=== PATIENT | female | born 1980 | race Caucasian/White ===

== ENCOUNTER 2017-04-08 21:53 | Emergency (ER) | payer OTHER ==
[~2017-04-08 21:53] MED LIST: ATIVAN2 MG PO; CAMILA0.35 MG PO; CERTAGEN1 EACH PO; FOLIC ACID1 MG PO; LOPRESSOR50 MG PO; NYSTATIN SUSP1 ML/ML SSW; PERCOCET 5/3251 TAB PO; THIAMINE HCL100 MG PO; XYREM500 MG/1 M PO; ZESTRIL10 MG PO; [UNRECOGNIZED DRUG - OTHER] PO
[2017-04-08 22:56] LABS: BILIRUBIN 2+ mg/dL (NEGATIVE); BLOOD 3+ Ery/uL (NEGATIVE); CLARITY CLEAR (CLEAR); COLOR YELLOW (YELLOW); GLUCOSE (U) NORMAL (NORMAL); KETONE (U) TRACE mg/dL (NEGATIVE); LEUKOCYTES NEGATIVE Leu/uL (NEGATIVE); NITRITE NEGATIVE (NEGATIVE); PROTEIN 1+ mg/dL (NEGATIVE); SPECIFIC GRAVITY 1.015 (1.001-1.030); pH 6.5 (5.0-9.0)
[2017-04-08 23:05] LABS: BACTERIA TRACE; URINARY WBC RARE
[2017-04-08 23:06] LABS: AMPHETAMINES NEGATIVE (NEGATIVE); BARBITURATES NEGATIVE (NEGATIVE); BENZODIAZEPINES NEGATIVE (NEGATIVE); COCAINE NEGATIVE (NEGATIVE); MARIJUANA (THC) NEGATIVE (NEGATIVE); METHADONE NEGATIVE (NEGATIVE); TRICYCLIC ANTIDEPRESSANT NEGATIVE (NEGATIVE)
[2017-04-09 00:06] LABS: BASOPHIL 0.1 % (0-2); EOSINOPHIL 0.1 % (0-5); HCT 36.9 % (37.0-47.0); HGB 12.8 g/dl (12.5-16.0); LYMPHOCYTE 15.4 % (15-48); MCH 31.5 pg (25.0-31.0); MCHC 34.7 g/dL (32.0-36.0); MCV 90.9 fL (78.0-100.0); MPV 11.2 fL (6.0-9.5); NEUTROPHIL 75.4 % (41-80); PLT 68 K/uL (150-400); RBC 4.06 M/uL (4.20-5.40); RDW 14.3 % (11.5-14.0)
[2017-04-09 00:24] LABS: ACETAMINOPHEN (TYLENOL) < 5.0 ug/mL (10.0-30.0); ALCOHOL (ETOH) MEDICAL NONE DETECTED; SALICYLATE < 6 ug/mL (0-300)
[2017-04-09 00:25] LABS: ALBUMIN 4.3 g/dL (3.5-5.0); BILIRUBIN - TOTAL 1.1 mg/dL (0.1-1.0); CREATININE 0.5 mg/dL (0.5-1.0); GLOBULIN (CALCULATION) 2.6 g/dL (2.2-4.2); TOTAL PROTEIN 6.9 g/dL (6.4-8.3)
[2017-07-08] MEDS ORDERED: FOLIC ACID1 MG PO (10:23)
[2017-07-08] MEDS ORDERED: XYREM500 MG/1 M PO (18:24)
[2017-07-08] MEDS ORDERED: TOPAMAX200 MG PO (18:24)
[2017-07-08] MEDS ORDERED: TOPAMAX50 MG PO (18:25)
[2017-07-08] MEDS ORDERED: HCTZ12.5 MG PO (18:25)
[2017-07-08] MEDS ORDERED: NORETHINDRONE AC5 M1 PO (18:25)
[2017-07-08] MEDS ORDERED: KEPPRA500 MG PO (18:25)
[2017-07-08] MEDS ORDERED: VENTOLIN HFA IN18 GM INH (18:26)
[2017-07-08] MEDS ORDERED: VITAMIN B-12500 MCG PO (18:26)
== END 2017-04-09 00:49 | disposition home or self-care (01) ==
LOC: FER 21:53
PROVIDERS: Emergency Medicine
DX: G40.409 Other generalized epilepsy and epileptic syndromes, not intractable, without status epilepticus (principal); E87.6 Hypokalemia; F10.10 Alcohol abuse, uncomplicated; F17.200 Nicotine dependence, unspecified, uncomplicated
CPT/HCPCS: 36415; 70450; 80053; 80305; 81001; 85025; 93005; G0480

== ENCOUNTER 2017-07-27 14:17 | Emergency (ER) | payer OTHER ==
[~2017-07-27 14:17] MED LIST changes: +HCTZ12.5 MG PO; +KEPPRA500 MG PO; +NORETHINDRONE AC5 M1 PO; +TOPAMAX200 MG PO; +TOPAMAX50 MG PO; +VENTOLIN HFA IN18 GM INH; +VITAMIN B-12500 MCG PO
[2017-07-27 15:40] LABS: BASOPHIL 0.4 % (0-2); EOSINOPHIL 0.4 % (0-5); HCT 38.9 % (37.0-47.0); HGB 12.9 g/dl (12.5-16.0); LYMPHOCYTE 47.9 % (15-48); MCH 31.7 pg (25.0-31.0); MCHC 33.2 g/dL (32.0-36.0); MCV 95.6 fL (78.0-100.0); MONOCYTE 4.5 % (0-12); MPV 8.8 fL (6.0-9.5); NEUTROPHIL 46.8 % (41-80); PLT 204 K/uL (150-400); RBC 4.07 M/uL (4.20-5.40); RDW 13.9 % (11.5-14.0); WBC 5.4 K/uL (4.0-10.5)
[2017-07-27 15:58] LABS: ACETAMINOPHEN (TYLENOL) < 5.0 ug/mL (10.0-30.0); SALICYLATE < 6 ug/mL (0-300)
[2017-07-27 16:06] LABS: ALBUMIN 4.2 g/dL (3.5-5.0); BILIRUBIN - TOTAL 0.5 mg/dL (0.1-1.0); CREATININE 0.6 mg/dL (0.5-1.0); GLOBULIN (CALCULATION) 2.7 g/dL (2.2-4.2); TOTAL PROTEIN 6.9 g/dL (6.4-8.3)
[2017-07-27 16:08] LABS: ALCOHOL (ETOH) MEDICAL 518 mg/dL
[2017-07-27 16:10] LABS: BILIRUBIN NEGATIVE (NEGATIVE); BLOOD TRACE-LYSED Ery/uL (NEGATIVE); CLARITY CLEAR (CLEAR); COLOR STRAW (YELLOW); GLUCOSE (U) NORMAL (NORMAL); KETONE (U) NEGATIVE (NEGATIVE); LEUKOCYTES NEGATIVE Leu/uL (NEGATIVE); NITRITE NEGATIVE (NEGATIVE); PROTEIN NEGATIVE (NEGATIVE); UROBILINOGEN 0.2 mg/dL (0.2-1.0)
[2017-07-27 17:06] LABS: AMPHETAMINES POSITIVE (NEGATIVE); BARBITURATES NEGATIVE (NEGATIVE); BENZODIAZEPINES NEGATIVE (NEGATIVE); COCAINE POSITIVE (NEGATIVE); MARIJUANA (THC) NEGATIVE (NEGATIVE); METHADONE NEGATIVE (NEGATIVE); TRICYCLIC ANTIDEPRESSANT NEGATIVE (NEGATIVE)
== END 2017-07-27 18:38 | disposition other institution (70) ==
LOC: FER 14:17
PROVIDERS: Emergency Medicine; Nurse Practitioner Family
DX: F10.10 Alcohol abuse, uncomplicated (principal); E87.6 Hypokalemia; F41.9 Anxiety disorder, unspecified; G40.909 Epilepsy, unspecified, not intractable, without status epilepticus; Z79.899 Other long term (current) drug therapy; Z88.5 Allergy status to narcotic agent
CPT/HCPCS: 36415; 80053; 80305; 81001; 85025; G0480; J3411; J3475

== ENCOUNTER 2021-03-31 09:53 | Emergency (ER) | payer OTHER ==
[~2021-03-31 09:53] MED LIST changes: +DIAZEPAM 5MG TAB5 MG PO; +MACROBID100 MG PO; +SKELAXIN800 MG PO; +VOLTAREN **OUT75 MG PO
[2021-03-31 11:05] LABS: HCG (URINE) SCREEN NEGATIVE (NEGATIVE)
[2021-03-31 11:07] LABS: AMPHETAMINES POSITIVE (NEGATIVE); BARBITURATES NEGATIVE (NEGATIVE); ECSTASY (MDMA) POSITIVE (NEGATIVE); MARIJUANA (THC) NEGATIVE (NEGATIVE); METHADONE NEGATIVE (NEGATIVE); OPIATES NEGATIVE (NEGATIVE); OXYCODONE NEGATIVE (NEGATIVE)
[2021-03-31 12:09] LABS: BASOPHIL 0.4 % (0-2); EOSINOPHIL 0.7 % (0-5); HCT 39.1 % (37.0-47.0); HGB 13.7 g/dl (12.5-16.0); LYMPHOCYTE 19.7 % (15-48); MCH 30.7 pg (25.0-31.0); MCV 87.7 fL (78.0-100.0); MONOCYTE 5.1 % (0-12); MPV 10.1 fL (6.0-9.5); NEUTROPHIL 73.9 % (41-80); NRBC 0; PLT 223 K/uL (150-400); RBC 4.46 M/uL (4.20-5.40); RDW 11.7 % (11.5-14.0); WBC 10.3 K/uL (4.0-10.5)
[2021-03-31 12:27] LABS: ALBUMIN 4.2 g/dL (3.4-5.0); ALKALINE PHOSHATASE 68 U/L (46-116); ALT 24 U/L (14-59); AST 18 U/L (15-37); BILIRUBIN - TOTAL 0.8 mg/dL (0.2-1.0); BUN 17 mg/dL (7-18); BUN/CREAT RATIO (CALC) 24.3 RATIO; CHLORIDE 105 mmol/L (98-107); CO2 (BICARBONATE) 22 mmol/L (21-32); GLOBULIN (CALCULATION) 3.6 g/dL; GLUCOSE 94 mg/dL (74-106); POTASSIUM 3.3 mmol/L (3.5-5.1); TOTAL PROTEIN 7.8 g/dL (6.4-8.2)
[2021-03-31 12:28] LABS: ACETAMINOPHEN (TYLENOL) < 2.0 ug/mL (10.0-30.0)
[2021-03-31] MEDS ORDERED: NARCAN4 MG (14:48)
== END 2021-03-31 15:45 | disposition home or self-care (01) ==
LOC: FER 09:53
PROVIDERS: Emergency Medicine
DX: F19.90 Other psychoactive substance use, unspecified, uncomplicated (principal); Z87.19 Personal history of other diseases of the digestive system
CPT/HCPCS: 36415; 80053; 80305; 84703; 85025; 93005; G0480; J2060; J2310

== ENCOUNTER 2021-05-09 22:06 | Emergency (ER) | payer OTHER ==
[~2021-05-09 22:06] MED LIST changes: +NARCAN4 MG
[2021-05-10 02:34] LABS: ACETAMINOPHEN (TYLENOL) < 2.0 ug/mL (10.0-30.0); ALBUMIN 3.3 g/dL (3.4-5.0); ALKALINE PHOSHATASE 103 U/L (46-116); ALT 62 U/L (14-59); AST 46 U/L (15-37); BILIRUBIN - TOTAL 0.3 mg/dL (0.2-1.0); BUN 23 mg/dL (7-18); CHLORIDE 104 mmol/L (98-107); CO2 (BICARBONATE) 24 mmol/L (21-32); CREATININE 0.58 mg/dL (0.51-0.95); GLOBULIN (CALCULATION) 3.4 g/dL; GLUCOSE 112 mg/dL (74-106); POTASSIUM 3.3 mmol/L (3.5-5.1); TOTAL PROTEIN 6.7 g/dL (6.4-8.2)
[2021-05-10 02:45] LABS: AMPHETAMINES NEGATIVE (NEGATIVE); BARBITURATES NEGATIVE (NEGATIVE); ECSTASY (MDMA) NEGATIVE (NEGATIVE); MARIJUANA (THC) NEGATIVE (NEGATIVE); METHADONE NEGATIVE (NEGATIVE); OPIATES NEGATIVE (NEGATIVE); OXYCODONE NEGATIVE (NEGATIVE)
[2021-05-10 02:51] LABS: BASOPHIL 0.5 % (0-2); EOSINOPHIL 0.3 % (0-5); HCT 38.6 % (37.0-47.0); HGB 13.1 g/dl (12.5-16.0); MCH 31.4 pg (25.0-31.0); MCHC 33.9 g/dL (32.0-36.0); MCV 92.6 fL (78.0-100.0); MONOCYTE 3.6 % (0-12); MPV 9.6 fL (6.0-9.5); NEUTROPHIL 63.3 % (41-80); NRBC 0; PLT 318 K/uL (150-400); RBC 4.17 M/uL (4.20-5.40); RDW 12.4 % (11.5-14.0); WBC 14.6 K/uL (4.0-10.5)
[2021-05-10 03:22] LABS: BILIRUBIN NEGATIVE (NEGATIVE); BLOOD NEGATIVE Ery/uL (NEGATIVE); CLARITY CLEAR (CLEAR); COLOR YELLOW (YELLOW); GLUCOSE (U) NORMAL (NORMAL); LEUKOCYTES NEGATIVE Leu/uL (NEGATIVE); NITRITE NEGATIVE (NEGATIVE); PROTEIN TRACE (LOW) mg/dL (NEGATIVE); SPECIFIC GRAVITY 1.025 (1.001-1.030)
[2021-05-10 03:23] LABS: BACTERIA 3+; SQUAMOUS EPITHELIAL CELLS 20-50
== END 2021-05-10 08:56 | disposition home or self-care (01) ==
LOC: FER 22:06
PROVIDERS: Emergency Medicine
DX: F10.129 Alcohol abuse with intoxication, unspecified (principal); G47.419 Narcolepsy without cataplexy; F17.200 Nicotine dependence, unspecified, uncomplicated; Z79.899 Other long term (current) drug therapy; Y90.3 Blood alcohol level of 60-79 mg/100 ml
CPT/HCPCS: 36415; 80053; 80305; 81001; 84484; 85025; G0480; J3411; J3475; J7030

== ENCOUNTER 2021-05-10 21:46 | Emergency (ER) | payer OTHER ==
[2021-05-10 22:33] LABS: BASOPHIL 0.7 % (0-2); EOSINOPHIL 0.8 % (0-5); HCT 33.5 % (37.0-47.0); HGB 11.2 g/dl (12.5-16.0); LYMPHOCYTE 50.2 % (15-48); MCH 31.6 pg (25.0-31.0); MCHC 33.4 g/dL (32.0-36.0); MCV 94.6 fL (78.0-100.0); MONOCYTE 4.5 % (0-12); NEUTROPHIL 43.5 % (41-80); NRBC 0; PLT 216 K/uL (150-400); RBC 3.54 M/uL (4.20-5.40); RDW 12.4 % (11.5-14.0); WBC 7.6 K/uL (4.0-10.5)
[2021-05-10 22:56] LABS: ALBUMIN 2.9 g/dL (3.4-5.0); BILIRUBIN - TOTAL 0.2 mg/dL (0.2-1.0); BUN/CREAT RATIO (CALC) 31.6 RATIO; CREATININE 0.57 mg/dL (0.51-0.95); GLOBULIN (CALCULATION) 3.1 g/dL; POTASSIUM 3.3 mmol/L (3.5-5.1)
== END 2021-05-11 06:05 | disposition home or self-care (01) ==
LOC: FER 21:46
PROVIDERS: Emergency Medicine
DX: F10.229 Alcohol dependence with intoxication, unspecified (principal); Z87.19 Personal history of other diseases of the digestive system; Y90.8 Blood alcohol level of 240 mg/100 ml or more
CPT/HCPCS: 36415; 80053; 85025; G0480